=== PATIENT | female | born 1990 | race Caucasian/White ===

== ENCOUNTER 2018-09-08 03:18 | Observation (INO) | payer OTHER | END 2018-09-08 17:53 | disposition home or self-care (01) | LOC: FLD 07:49 ==

== ENCOUNTER 2018-09-11 15:41 | Day surgery (SDC) | payer OTHER ==
--- NOTE | 2018-09-11 16:19 | POSTANESTH ---
Post Anesthetic Evaluation Cardiovascular Status: Normal, Stable Respiratory Status: Normal, Stable Level of Consciousness/Mental Status: Can Participate in Eval, Alert and Oriented Pain Control: Adequate, Prn Tx Ordered (Reports cramping, mild at this time.) Nausea/Vomiting Control: Adequate, Prn Tx Ordered Complications Possibly Related to Anesthesia: None Noted
--- NOTE | 2018-09-11 16:20 | PDANEPAE ---
ANE History of Present Illness 28 yo female with molar for D&C. ANE Past Medical History - Cardiovascular History Hx Hypertension: No Hx Arrhythmias: No Hx Chest Pain: No Hx Coronary Artery / Peripheral Vascular Disease: No Hx CHF / Valvular Disease: No Hx Palpitations: No Cardiovascular History Comment: episodes of pre-syncope with standing - orthostatic hypotension - Pulmonary History Hx COPD: No Hx Asthma/Reactive Airway Disease: No Hx Recent Upper Respiratory Infection: No Hx Oxygen in Use at Home: No Hx Sleep Apnea: No - Endocrine History Hx Diabetes: No Hypothyroid: No Hyperthyroid: No Obesity: no - Renal History Hx Renal Disorders: No - Liver History Hx Hepatic Disorders: No - Cancer History Hx Cancer: No - Surgical History Prior Surgeries: wisdom teeth extraction ANE Review of Systems Review of Systems: - Systems Constitutional: Reports: no symptoms Cardiac: Reports: no symptoms Respiratory: Reports: no symptoms ANE Patient History - Allergies Allergies/Adverse Reactions: No Known Allergies Allergy (Verified 09/08/18 07:54) - Home Medications Home Medications: Vit27&Calcium/Iron/FA [] 1 each PO DAILY 09/08/18 [Last Taken 09/11/18] - NPO status NPO Since - Liquids (Date): 09/11/18 NPO Since - Liquids (Time): 14:00 NPO Since - Solids (Date): 09/11/18 NPO Since - Solids (Time): 09:00 (enchiladas with avocado) - Anes Hx Anes Hx: no prior problems - Smoking Hx Smoking Status: Never smoked - Family Anes Hx Family Anes Hx: neg - N/A ANE Labs/Vital Signs - Vital Signs Blood Pressure: 119/75 Heart Rate: 83 Respiratory Rate: 20 O2 Sat (%): 99 Height: 170.18 cm Weight: 56.245 kg ANE Physical Exam - Airway Neck exam: FROM Mallampati Score: Class 1 Mouth exam: normal dental/mouth exam - Pulmonary Pulmonary: clear to auscultation - Cardiovascular Cardiovascular: regular rate and rhythym - ASA Status ASA Status: I ANE Anesthesia Plan Anesthesia Plan: GA with mask Total IV Anesthesia: Yes
[2018-09-11] MEDS ORDERED: DOXYCYCLINE INJ 100 MG in NS 250 ML IV ONE (16:41)
[2018-09-11] MEDS ORDERED: LIDOCAINE 2% 2 ML INJ ONE ×2 (16:50→16:51)
[2018-09-11] MEDS ORDERED: PROPOFOL/EMULSION 500 MG/50 ML BOTTLE IV ONE (16:50)
[2018-09-11] MEDS ORDERED: fentaNYL 100 MCG/2 ML INJ ONE (16:50)
[2018-09-11] MEDS ORDERED: LR 1,000 ML IV SCH (17:00)
[2018-09-11] MEDS ORDERED: KETOROLAC 30 MG/1 ML SDV ONE ×2 (17:50)
[2018-09-11] MEDS ORDERED: IBUPROFEN 600 MG TAB PO PRN (17:59)
[2018-09-11] MEDS ORDERED: oxyCODONE IR 5 MG TAB PO PRN (18:00)
--- NOTE | 2018-09-11 18:03 | POSTOPPROG ---
Post Op Note Date of Operation: 09/11/18 Surgeon: Heather Mckoy Anesthesiologist: Dr Mely Cazares Anesthesia: IV Sedation Pre-op Diagnosis: MAB @ 8 weeks, suspected molar Post-op Diagnosis: same Procedure: ultrasound guided suction d and c Inf/Abcess present in the surg proc area at time of surgery?: No Depth: Organ Space EBL: Minimal Total fluids administered: 500 Complications: none Specimen(s): products of conception
[2018-09-11 19:22] VITALS: BP 105/59
--- NOTE | 2018-09-12 05:37 | GOP ---
[f rep st] OPERATIVE REPORT DATE OF OPERATION: 09/11/2018 SURGEON: Heather Mckoy MD ANESTHESIA: General. ANESTHESIOLOGIST: Oly Leyva MD PREOPERATIVE DIAGNOSIS: Missed at 8 weeks, suspected molar . POSTOPERATIVE DIAGNOSIS: Missed at 8 weeks, suspected molar . PROCEDURE PERFORMED: Suction dilation and curettage. FINDINGS: SPECIMENS: Pathologic specimen will be products of conception. The patient has previously received RhoGAM on Friday and does not need another dose. ESTIMATED BLOOD LOSS: For the procedure was less than 10 cc. INDICATIONS: The patient is a 28-year-old, 1, para 0, approximately 8 weeks by last menstrua l period but she has 35 day cycles. She was initially evaluated on 09/08/2018, for left lower quadra nt pain and she had concerning findings on ultrasound for possible ectopic. The patient also had nilo e vaginal bleeding, so she did receive RhoGAM on 09/08, due to the negative blood type. She was obse rved during the day. Pain decreased and we decided to proceed with conservative management and watch hormone levels and followup ultrasound today. Her beta HCG increased from 1451 on the to 2940 t lizzette. The patient's H and H were stable with a hemoglobin of 13, hematocrit for 40 and platelets wer e normal. The patient's ultrasound today was no longer concerning for possible ectopic. Ovaries wer e fine. However, there was no gestational sac forming and there were multiple cystic areas throughou t the thick endometrial lining consistent with a molar . Because of these ultrasound findin gs were concerning for molar and were reassuring that is was not a normal with a gestational sac and a yolk sac, but reassuring that is not a normal , patient wanted to proc eed with suction, dilation and curettage today. The patient was consented for the procedure. She un derstood the risks and benefits. The risks including bleeding, infection, damage to the uterus inclu ding possible risk of perforation, damage to other organs if perforation was to occur, need for addit ional procedures because of incomplete removal of all of the tissue or spontaneous expulsion at a lat er time and compromise of future fertility. She also understands that with a molar we are concerned for possible gestational trophoblastic disease and we need to follow clots for 6 months pos t procedure. DESCRIPTION OF PROCEDURE: The patient was taken to the operating room where she was placed under IV sedation anesthesia without difficulty. She was prepped and draped in a dorsal lithotomy position. After WHO time-out was performed, an open-sided speculum was placed in the vagina, and a Burnett tenac ulum was used to grasp the anterior lip of the cervix. The uterus sounded to 9 cm. The cervix was t hen progressively dilated with Dale dilators to a #8. The #8 curved suction curette was then gently advanced from the cervix to the fundus and tissue was obtained with several passages of the suction device. Sharp curettage was then performed in a clockwise fashion until a gritty texture was palpate d throughout the entire endometrium. Final passes of the suction device revealed minimal tissue and no further bleeding. All of this was performed with direct ultrasound guidance with a transabdominal ultrasound due to concerns for molar . Uterus felt normal and there was no excessive bleed ing and no excessive tissue. The tenaculum was removed and the speculum was removed and a transvagin al ultrasound was performed and there was a thin endometrial stripe without any evidence of retained products of conception. The patient tolerated the procedure well. Sponge, lap, needle, and instrume nt counts were correct x3. Patient went to the recovery room in good condition. IV FLUIDS: 500 cc. URINE OUTPUT: Not measured. /[id number]/MODL
== END 2018-09-11 19:40 | disposition home or self-care (01) ==
LOC: FOBOP 15:41
PROVIDERS: ATTEND Obstetrics & Gynecology
PROC: 10D18ZZ Extraction of Products of Conception, Retained, Via Natural or Artificial Opening Endoscopic (ICD-10-PCS; principal; 2018-09-11)
DX: O02.0 Blighted ovum and nonhydatidiform mole (principal)
CPT/HCPCS: J1885; J2704; J3010